=== PATIENT | female | born 1985 | race Caucasian/White ===

== ENCOUNTER 2020-10-03 14:11 | Inpatient (IN) | payer BC ==
[2020-10-10] MEDS: Lactated Ringer's 1,000 ML IV SCH ×3 (06:20→15:15)
[2020-10-10] MEDS ORDERED: Ibuprofen 800 MG TAB PO PRN (06:26)
[2020-10-10] MEDS ORDERED: Lidocaine 1% (PF) 30 ML VIAL SC PRN (06:26)
[2020-10-10] MEDS ORDERED: hydrALAZINE 20 MG/ML VIAL SLOW IVP PRN ×2 (06:26→20:31)
[2020-10-10] MEDS ORDERED: Ondansetron PF 4 MG/2 ML Vial IVP PRN ×3 (06:26→20:31)
[2020-10-10] MEDS ORDERED: HYDROcodone/Acetaminophen 5/325 mg Tablet PO PRN ×4 (06:26→20:31)
[2020-10-10] MEDS ORDERED: NS / Oxytocin 40 units/1000ml 1,000 ML IV PRN (06:26)
[2020-10-10] MEDS ORDERED: Promethazine HCl 25 MG/ML VIAL IM PRN ×2 (06:26→18:41)
[2020-10-10] MEDS ORDERED: NS w/ Oxytocin 30 units 500 ML ONE ×2 (06:41→18:54)
[2020-10-10 07:11] VITALS: BMI 37.0
[2020-10-10] MEDS ORDERED: Acetaminophen 500 MG TAB PO SCH (07:30)
[2020-10-10 07:42] LABS: Hemoglobin 11.5 g/dL (12.0-15.5); Mean Corpuscular Hemoglobin 32.5 pg (27.0-33.0); Mean Corpuscular Volume 95.5 fl (81.6-98.3); Mean Platelet Volume 10.2 fl (7.4-10.4); Platelet Count 312 10x3/uL (150-450); RBC Distribution Width 13.4 % (11.5-14.5); Red Blood Cell (RBC) Count 3.54 10x6/uL (3.90-5.03); White Blood Cell (WBC) Count 12.9 10x3/uL (3.5-10.5)
[2020-10-10 08:23] LABS: Hep B Surf Ag Non-Reactive S/CO (NonReactive)
[2020-10-10 08:24] LABS: Syphilis Antibody Nonreactive (Nonreactive); Syphilis Antibody Index 0.11 S/CO (<1.00 Non-Reactive)
[2020-10-10 09:43] LABS: HBSAg Index 0.15 S/CO (0-0.99)
[2020-10-10] MEDS ORDERED: Fentanyl 4 mcg/Bup 0.1% Cadd 100 ML ONE (15:13)
[2020-10-10] MEDS ORDERED: Lactated Ringer's 500 ML IV PRN (18:41)
[2020-10-10] MEDS ORDERED: Naloxone HCl 0.4 mg/ml Vial IVP PRN ×2 (18:41)
[2020-10-10] MEDS ORDERED: diphenhydrAMINE 50 MG/ML VIAL IVP PRN (18:41)
[2020-10-10] MEDS ORDERED: Acetaminophen 325 MG TAB PO PRN (18:41)
[2020-10-10] MEDS ORDERED: Communication Order-Pharmacy FS SCH (18:45)
[2020-10-10] MEDS ORDERED: Fentanyl 4 mcg/Bupivacaine 0.1% Cassette 100 ML EPIDURAL SCH (18:45)
[2020-10-10] MEDS ORDERED: ePHEDrine Sulfate 50 MG/10 ML VIAL SLOW IVP PRN (19:26)
[2020-10-10] MEDS ORDERED: Hydrocerin (Eucerin) Cream 120 gm Jar TOP PRN (19:27)
[2020-10-10] MEDS ORDERED: Bisacodyl 10 MG SUPP PR PRN (20:31)
[2020-10-10] MEDS ORDERED: Benzocaine-Menthol 82.5 ML CAN TOP PRN (20:31)
[2020-10-10] MEDS ORDERED: diphenhydrAMINE 25 MG CAP PO PRN (20:31)
[2020-10-10] MEDS ORDERED: NS / Oxytocin 40 units/1000ml 1,000 ML IV SCH (20:31)
[2020-10-10] MEDS ORDERED: Milk Of Magnesia 30 ML UDCUP PO PRN (20:31)
[2020-10-10] MEDS ORDERED: Preparation H Ointment 28 GM TUBE PR PRN (20:31)
[2020-10-10] MEDS ORDERED: Lanolin Ointment 7 GM TUBE TOP PRN (20:31)
[2020-10-10] MEDS: Ibuprofen 800 MG TAB PO SCH (22:05)
[2020-10-10] MEDS: Docusate Calcium (SURFAK) 240 MG CAP PO SCH ×2 (22:05→22:06)
[2020-10-11] MEDS: Ibuprofen 800 MG TAB PO SCH ×3 (05:23→21:38)
[2020-10-11] MEDS: Prenatal Vitamin 1 TAB PO SCH (08:25)
[2020-10-11] MEDS: Docusate Calcium (SURFAK) 240 MG CAP PO SCH ×2 (08:25→21:38)
[2020-10-11] MEDS ORDERED: Adacel (T-DAP) 0.5 ML SYRINGE IM ONE (09:00)
[2020-10-11] MEDS: Ferrous Sulfate 325 MG TAB PO SCH ×2 (18:41→18:42)
[2020-10-11] MEDS ORDERED: Bupivacaine 0.25% HCL 30 ML VIAL ONE (19:32)
[2020-10-12] MEDS: Ibuprofen 800 MG TAB PO SCH ×2 (06:31→13:46)
[2020-10-12] MEDS: Prenatal Vitamin 1 TAB PO SCH (08:08)
[2020-10-12] MEDS: Docusate Calcium (SURFAK) 240 MG CAP PO SCH (08:08)
[2020-10-12] MEDS: Ferrous Sulfate 325 MG TAB PO SCH (08:09)
[2020-10-12 08:58] VITALS: BP 105/64; TEMP 98.2
== END 2020-10-12 14:05 | disposition home or self-care (01) | DRG 807 ==
LOC: CSHLD 10-10 05:32 → CSHPP 10-10 20:48 → EDSTATUS 10-14 05:30
PROVIDERS: ADMIT Obstetrics & Gynecology; ATTEND Obstetrics & Gynecology
PROC: 10E0XZZ Delivery of Products of Conception, External Approach (ICD-10-PCS; principal; 2020-10-10)
PROC: 0HQ9XZZ Repair Perineum Skin, External Approach (ICD-10-PCS; 2020-10-10)
PROC: 3E033VJ Introduction of Other Hormone into Peripheral Vein, Percutaneous Approach (ICD-10-PCS; 2020-10-10)
DX: O48.0 Post-term pregnancy (principal); Z37.0 Single live birth; Z3A.41 41 weeks gestation of pregnancy; O70.0 First degree perineal laceration during delivery; Z20.822 Contact with and (suspected) exposure to COVID-19; Z88.1 Allergy status to other antibiotic agents
CPT/HCPCS: 51702; 85027; 86780; 86850; 86900; 86901; 87340; 87635; J2590; J7030; S0020; U0003; U0005

== ENCOUNTER 2020-10-07 09:06 | Outpatient (CLI) | payer BC ==
[2020-10-08 01:17] LABS: SARS-CoV-2 PCR by NAA Not Detected (NotDetected)
== END 2020-10-07 09:07 | disposition home or self-care (01) ==
LOC: CSHLAB 09:06
PROVIDERS: ATTEND Obstetrics & Gynecology
DX: Z20.822 Contact with and (suspected) exposure to COVID-19 (principal)
CPT/HCPCS: 87635; U0003; U0005

== ENCOUNTER 2022-05-19 12:40 | Day surgery (SDC) | payer BC ==
[2022-05-19] MEDS ORDERED: hydrALAZINE 20 MG/ML VIAL SLOW IVP PRN (13:27)
[2022-05-19] MEDS ORDERED: Lactated Ringer's 1,000 ML IV SCH (13:30)
[2022-05-19 13:52] VITALS: BMI 36.2
[2022-05-19 14:23] LABS: #Monocytes 0.4 10x3/uL (0.0-1.1); %Basophils 0.2 % (0.0-2.0); %Eosinophils 0.2 % (0.0-6.0); %Lymphocytes 7.1 % (18.0-47.0); %Monocytes 3.4 % (0.0-10.0); %Neutrophils 88.2 % (40.0-75.0); Mean Corpuscular HGB CONC 34.3 g/dL (32.0-36.0); Mean Corpuscular Volume 96.4 fl (81.6-98.3); Mean Platelet Volume 9.9 fl (7.4-10.4); Platelet Count 255 10x3/uL (150-450); RBC Distribution Width 13.6 % (11.5-14.5); Red Blood Cell (RBC) Count 3.33 10x6/uL (3.90-5.03); White Blood Cell (WBC) Count 11.3 10x3/uL (3.5-10.5)
[2022-05-19 14:34] LABS: ALT (SGPT) 12 U/L (8-55); AST (SGOT) 20 U/L (5-34); Albumin 3.4 g/dL (3.5-5.0); Alkaline Phosphatase 86 U/L (40-110); Anion Gap 13 mmol/L (10-20); BUN (Urea Nitrogen) 10 mg/dL (7.0-18.7); Bilirubin, Total 1.5 mg/dL (0.2-1.2); Calc. Creatinine Clearance 196 mL/min (70-130); Calcium 8.6 mg/dL (7.8-10.44); Carbon Dioxide 21 mmol/L (22-29); Chloride 106 mmol/L (98-107); Estimated GFR 119; Globulin 3.2 g/dL (2.4-3.5); Glucose 76 mg/dL (70-105); Potassium 3.8 mmol/L (3.5-5.1); Protein, Total 6.6 g/dL (6.0-8.3); Sodium 136 mmol/L (136-145)
[2022-05-19 14:43] LABS: SARS-CoV-2 NAA Rapid Test Not Detected (NotDetected)
== END 2022-05-19 15:50 | disposition home or self-care (01) ==
LOC: CSHLD/OP 12:40
PROVIDERS: ATTEND Obstetrics & Gynecology
DX: O21.9 Vomiting of pregnancy, unspecified (principal); O99.283 Endocrine, nutritional and metabolic diseases complicating pregnancy, third trimester; E86.0 Dehydration; Z3A.34 34 weeks gestation of pregnancy; Z86.16 Personal history of COVID-19; Z88.1 Allergy status to other antibiotic agents; Z20.822 Contact with and (suspected) exposure to COVID-19
CPT/HCPCS: 36415; 80053; 85025; 96360; 96361; 99283

== ENCOUNTER 2022-07-02 06:00 | Inpatient (IN) | payer BC ==
[2022-07-02] MEDS ORDERED: Promethazine HCl 25 MG/ML VIAL IM PRN (14:03)
[2022-07-02] MEDS ORDERED: hydrALAZINE 20 MG/ML VIAL SLOW IVP PRN (14:03)
[2022-07-02] MEDS ORDERED: Butorphanol Tartrate 1 MG/ML VIAL SLOW IVP PRN (14:03)
[2022-07-02] MEDS ORDERED: HYDROcodone/Acetaminophen 5/325 mg Tablet PO PRN ×2 (14:03)
[2022-07-02] MEDS ORDERED: Ondansetron PF 4 MG/2 ML Vial IVP PRN (14:03)
[2022-07-02] MEDS ORDERED: Lidocaine 1% (PF) 30 ML VIAL SC PRN (14:03)
[2022-07-02] MEDS ORDERED: NS w/ Oxytocin 30 units 500 ML IV SCH ×2 (14:03)
[2022-07-02] MEDS ORDERED: Misoprostol 100 MCG TAB VAG SCH (14:03)
[2022-07-02] MEDS ORDERED: Ibuprofen 800 MG TAB PO PRN (14:03)
[2022-07-02 14:16] VITALS: BMI 36.2
[2022-07-02] MEDS ORDERED: Bupivacaine HCl 0.5%/Epinephrine 1:200,000/PF 30 ml Vial ONE (14:53)
[2022-07-02 15:14] LABS: Hemoglobin 11.8 g/dL (12.0-15.5); Mean Corpuscular Hemoglobin 33.8 pg (27.0-33.0); Mean Corpuscular Volume 96.6 fl (81.6-98.3); Mean Platelet Volume 10.5 fl (7.4-10.4); Platelet Count 310 10x3/uL (150-450); Red Blood Cell (RBC) Count 3.49 10x6/uL (3.90-5.03); White Blood Cell (WBC) Count 12.3 10x3/uL (3.5-10.5)
[2022-07-02 15:45] LABS: HBSAg Index 0.15 S/CO (0-0.99); Hep B Surf Ag Non-Reactive S/CO (NonReactive)
[2022-07-02 15:47] LABS: Syphilis Antibody Nonreactive (Nonreactive); Syphilis Antibody Index 0.07 S/CO (<1.00 Non-Reactive)
[2022-07-02 16:36] LABS: SARS-CoV-2 NAA Rapid Test Not Detected (NotDetected)
[2022-07-02] MEDS ORDERED: Misoprostol 100 MCG TAB ONE (19:01)
[2022-07-03] MEDS ORDERED: Fentanyl 2 mcg/Bup 0.1% Cadd 100 ML ONE (01:33)
[2022-07-03] MEDS ORDERED: Fentanyl 100 MCG/2 ML VIAL ONE (01:44)
[2022-07-03] MEDS: Lactated Ringer's 1,000 ML IV SCH ×3 (01:50→09:25)
[2022-07-03] MEDS ORDERED: diphenhydrAMINE 50 MG/ML VIAL IVP PRN ×2 (02:25→02:26)
[2022-07-03] MEDS ORDERED: Acetaminophen 325 MG TAB PO PRN ×2 (02:25→02:26)
[2022-07-03] MEDS ORDERED: Promethazine HCl 25 MG/ML VIAL IM PRN ×2 (02:25→02:26)
[2022-07-03] MEDS ORDERED: ePHEDrine Sulfate 50 MG/10 ML VIAL SLOW IVP PRN ×2 (02:25→02:26)
[2022-07-03] MEDS ORDERED: Ondansetron PF 4 MG/2 ML Vial IVP PRN ×3 (02:25→07:19)
[2022-07-03] MEDS ORDERED: Naloxone HCl 0.4 mg/ml Vial IVP PRN ×4 (02:25→02:26)
[2022-07-03] MEDS ORDERED: Moisturizing Cream (Eucerin) 113 GM JAR TOP PRN ×2 (02:25→02:26)
[2022-07-03] MEDS ORDERED: Lactated Ringer's 500 ML IV PRN ×2 (02:25→02:26)
[2022-07-03] MEDS ORDERED: Fentanyl 2 mcg/Bupivacaine 0.1% Cassette 100 ML EPIDURAL SCH (02:30)
[2022-07-03] MEDS ORDERED: Communication Order-Pharmacy FS SCH ×2 (02:30)
[2022-07-03] MEDS ORDERED: diphenhydrAMINE 25 MG CAP PO PRN (07:19)
[2022-07-03] MEDS ORDERED: Milk Of Magnesia 30 ML UDCUP PO PRN (07:19)
[2022-07-03] MEDS ORDERED: HYDROcodone/Acetaminophen 5/325 mg Tablet PO PRN (07:19)
[2022-07-03] MEDS ORDERED: Boostrix 0.5 ML (Tdap) VIAL (>/=7 yrs of age) IM ONE (07:19)
[2022-07-03] MEDS ORDERED: Bisacodyl 10 MG SUPP PR PRN (07:19)
[2022-07-03] MEDS ORDERED: Preparation H Ointment 28 GM TUBE PR PRN (07:19)
[2022-07-03] MEDS ORDERED: Lanolin Ointment 7 GM TUBE TOP PRN (07:19)
[2022-07-03] MEDS ORDERED: hydrALAZINE 20 MG/ML VIAL SLOW IVP PRN (07:19)
[2022-07-03] MEDS ORDERED: Ibuprofen 800 MG TAB PO SCH (07:30)
[2022-07-03] MEDS: Ferrous Sulfate 325 MG TAB PO SCH ×2 (09:25→14:01)
[2022-07-03] MEDS: Prenatal Vitamin 1 TAB PO SCH (09:25)
[2022-07-03] MEDS: Docusate 100 MG CAP PO SCH ×2 (09:25→21:22)
[2022-07-03] MEDS: Ibuprofen 800 MG TAB PO SCH ×2 (11:08→21:22)
[2022-07-03] MEDS: HYDROcodone/Acetaminophen 5/325 mg Tablet PO PRN ×2 (18:07→22:48)
[2022-07-04] MEDS: Ibuprofen 800 MG TAB PO SCH (04:56)
[2022-07-04 08:46] VITALS: BP 110/56; TEMP 97.9
[2022-07-04] MEDS: Prenatal Vitamin 1 TAB PO SCH (08:58)
[2022-07-04] MEDS: Docusate 100 MG CAP PO SCH (08:58)
[2022-07-04] MEDS: HYDROcodone/Acetaminophen 5/325 mg Tablet PO PRN (09:11)
== END 2022-07-04 12:45 | disposition home or self-care (01) | DRG 807 ==
LOC: CSHLD 13:47 → CSHPED 07-03 08:23
PROVIDERS: ADMIT Obstetrics & Gynecology; ATTEND Obstetrics & Gynecology
PROC: 10E0XZZ Delivery of Products of Conception, External Approach (ICD-10-PCS; principal; 2022-07-03)
PROC: 3E033VJ Introduction of Other Hormone into Peripheral Vein, Percutaneous Approach (ICD-10-PCS; 2022-07-03)
DX: O48.1 Prolonged pregnancy (principal); Z37.0 Single live birth; Z88.1 Allergy status to other antibiotic agents; Z20.822 Contact with and (suspected) exposure to COVID-19; O34.13 Maternal care for benign tumor of corpus uteri, third trimester; D25.9 Leiomyoma of uterus, unspecified; Z3A.40 40 weeks gestation of pregnancy; O69.81X0 Labor and delivery complicated by cord around neck, without compression, not applicable or unspecified
CPT/HCPCS: 51702; 85027; 86780; 86850; 86900; 86901; 87340; J2590; J7120; U0002